=== PATIENT | male | born 1980 | race African-American/Black ===

== ENCOUNTER 2019-07-27 09:04 | Emergency (ER) | payer SELFPAY ==
[~2019-07-27] VITALS: Ht 172 cm; Wt 90.9 kg
--- NOTE | 2019-07-27 09:06 | ED General ---
General Stated Complaint: HYPOTHERMIA Source of Information: Patient, EMS Exam Limitations: Other (clinical condition) History of Present Illness Date Seen by Provider: Jul 27, 2019 Time Seen by Provider: 09:06 Initial Comments 39-year-old male brought in by EMS. [place]. We are unsure how long he has been laying out there. Patient reports that he was walking to the gas station when he "passed out" patient admits to drinking. Patient admits he is diabetic but does not take any insulin or any medication for because he "does not like needles" patient denies any drug use. Patient was confused and mildly obtunded when EMS found him. He has become much more awake and talkative upon arrival to the ER. Allergies and Home Medications Allergies Coded Allergies: Penicillins (Verified Allergy, Unknown, 07/27/19) Patient Home Medication List Home Medication List Reviewed: Yes Review of Systems Review of Systems Constitutional: chills Respiratory: no symptoms reported Cardiovascular: no symptoms reported Gastrointestinal: no symptoms reported Genitourinary: no symptoms reported Musculoskeletal: no symptoms reported Skin: no symptoms reported Psychiatric/Neurological: See HPI Past Gauumpb-Ymqiyg-Bhsngq Hx Past Med/Social Hx: Reviewed Nursing Past Med/Soc Hx Physical Exam Vital Signs Vital Signs - First Documented 07/27/19 09:04 Temp 31.2 Pulse 102 Resp 15 B/P (MAP) 145/102 (116) Pulse Ox 99 O2 Delivery Room Air Capillary Refill : Height, Weight, BMI Height: '" Weight: lbs. oz. 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 Norm as Tested Skin: Cool, Damp Progress/Results/Core Measures Suspected Sepsis SIRS Temperature: Pulse: Respiratory Rate: Laboratory Tests 07/27/19 09:12: White Blood Count 9.8 Blood Pressure / Mean: Laboratory Tests 07/27/19 09:12: Creatinine 0.87, Platelet Count 408H, Total Bilirubin 0.3 Results/Orders Lab Results Laboratory Tests Test 07/27/19 09:12 07/27/19 09:38 07/27/19 09:50 Range/Units White Blood Count 9.8 4.3-11.0 10^3/uL Red Blood Count 6.24 H 4.35-5.85 10^6/uL Hemoglobin 17.3 13.3-17.7 G/DL Hematocrit 50 40-54 % Mean Corpuscular Volume 81 80-99 FL Mean Corpuscular Hemoglobin 28 25-34 PG Mean Corpuscular Hemoglobin Concent 34 32-36 G/DL Red Cell Distribution Width 14.7 H 10.0-14.5 % Platelet Count 408 H 130-400 10^3/uL Mean Platelet Volume 9.2 7.4-10.4 FL Neutrophils (%) (Auto) 65 42-75 % Lymphocytes (%) (Auto) 29 12-44 % Monocytes (%) (Auto) 4 0-12 % Eosinophils (%) (Auto) 1 0-10 % Basophils (%) (Auto) 0 0-10 % Neutrophils # (Auto) 6.4 1.8-7.8 X 10^3 Lymphocytes # (Auto) 2.9 1.0-4.0 X 10^3 Monocytes # (Auto) 0.4 0.0-1.0 X 10^3 Eosinophils # (Auto) 0.1 0.0-0.3 10^3/uL Basophils # (Auto) 0.0 0.0-0.1 10^3/uL Sodium Level 143 135-145 MMOL/L Potassium Level 3.8 3.6-5.0 MMOL/L Chloride Level 103 98-107 MMOL/L Carbon Dioxide Level 21 21-32 MMOL/L Anion Gap 19 H 5-14 MMOL/L Blood Urea Nitrogen 11 7-18 MG/DL Creatinine 0.87 0.60-1.30 MG/DL Estimat Glomerular Filtration Rate > 60 BUN/Creatinine Ratio 13 Glucose Level 73 70-105 MG/DL Calcium Level 10.0 8.5-10.1 MG/DL Corrected Calcium 8.5-10.1 MG/DL Total Bilirubin 0.3 0.1-1.0 MG/DL Aspartate Amino Transf (AST/SGOT) 24 5-34 U/L Alanine Aminotransferase (ALT/SGPT) 14 0-55 U/L Alkaline Phosphatase 90 40-136 U/L Creatine Kinase MB 3.3 <6.6 NG/ML Total Protein 9.3 H 6.4-8.2 GM/DL Albumin 4.7 H 3.2-4.5 GM/DL Serum Alcohol 159 H <10 MG/DL Blood Gas Puncture Site RR Blood Gas Patient Temperature 31.5 Arterial Blood pH 7.30 *L 7.37-7.43 Arterial Blood Partial Pressure CO2 36 35-45 MMHG Arterial Blood Partial Pressure O2 67 L 79-93 MMHG Arterial Blood HCO3 18 L 23-27 MMOL/L Arterial Blood Total CO2 19.8 L 21.0-31.0 MMOL/L Arterial Blood Oxygen Saturation 95 94-100 % Arterial Blood Base Excess -7.9 L -2.5-2.5 MMOL/L Venkat Test YES-POS Blood Gas Ventilator Setting NO Blood Gas Inspired Oxygen RA Glucometer 69 L 70-110 MG/DL My Orders Orders - JUNIE BRYANT Rc DO Accucheck Stat ONCE (07/27/19 09:06) Ekg Tracing (07/27/19 09:06) Alcohol (07/27/19 09:06) Cbc With Automated Diff (07/27/19 09:06) Comprehensive Metabolic Panel (07/27/19 09:06) Creatine Kinase Mb (07/27/19 09:06) Drug Screen Stat (Urine) (07/27/19 09:06) Ua Culture If Indicated (07/27/19 09:06) Arterial Blood Gas (07/27/19 09:06) Ed Iv/Invasive Line Start (07/27/19 09:12) Ns Iv 1000 Ml (Sodium Chloride 0.9%) (07/27/19 09:12) Acetaminophen Tablet (Tylenol Tablet) (07/27/19 11:54) Vital Signs/I&O 07/27/19 09:04 Temp 31.2 Pulse 102 Resp 15 B/P (MAP) 145/102 (116) Pulse Ox 99 O2 Delivery Room Air Capillary Refill : Progress Note : Time: 11:49 Progress Note Patient continued to improve throughout his stay. He was legally intoxicated with a blood alcohol level. No other findings on exam or labs. Departure Impression Primary Impression: Acute alcohol intoxication Qualified Codes: F10.929 - Alcohol use, unspecified with intoxication, unspecified Additional Impression: Hypothermia due to exposure Disposition: HOME, SELF-CARE Condition: Stable JUNIE BRYANT Jul 27, 2019 09:06
[2019-07-27] MEDS ORDERED: NS IV 1000 ML 1,000 ML IV SCH (09:12)
[2019-07-27 09:21] LABS: BASOPHILS % (AUTO) 0 % (0-10); EOSINOPHILS # (AUTO) 0.1 10^3/uL (0.0-0.3); EOSINOPHILS % (AUTO) 1 % (0-10); HEMATOCRIT 50 % (40-54); HEMOGLOBIN 17.3 G/DL (13.3-17.7); LYMPHOCYTES # (AUTO) 2.9 X 10^3 (1.0-4.0); LYMPHOCYTES % (AUTO) 29 % (12-44); MEAN CORPUSCULAR HEMOGLOBIN 28 PG (25-34); MEAN CORPUSCULAR HGB CONC 34 G/DL (32-36); MEAN CORPUSCULAR VOLUME 81 FL (80-99); MEAN PLATELET VOLUME 9.2 FL (7.4-10.4); MONOCYTES # (AUTO) 0.4 X 10^3 (0.0-1.0); MONOCYTES % (AUTO) 4 % (0-12); NEUTROPHILS # (AUTO) 6.4 X 10^3 (1.8-7.8); NEUTROPHILS % (AUTO) 65 % (42-75); PLATELET COUNT 408 10^3/uL (130-400); RED CELL DISTRIBUTION WIDTH 14.7 % (10.0-14.5); WHITE BLOOD COUNT 9.8 10^3/uL (4.3-11.0)
[2019-07-27 09:45] LABS: ALANINE AMINOTRANSFERASE 14 U/L (0-55); ALBUMIN 4.7 GM/DL (3.2-4.5); ALKALINE PHOSPHATASE 90 U/L (40-136); BILIRUBIN,TOTAL 0.3 MG/DL (0.1-1.0); BUN/CREATININE RATIO 13; CARBON DIOXIDE 21 MMOL/L (21-32); CHLORIDE 103 MMOL/L (98-107); CREATININE SERUM 0.87 MG/DL (0.60-1.30); GFR ESTIMATED > 60; GLUCOSE 73 MG/DL (70-105); POTASSIUM 3.8 MMOL/L (3.6-5.0); SODIUM 143 MMOL/L (135-145); TOTAL PROTEIN 9.3 GM/DL (6.4-8.2)
[2019-07-27 09:49] LABS: ABG BASE EXCESS -7.9 MMOL/L (-2.5-2.5); ABG OXYGEN SATURATION 95 % (94-100); ABG PCO2 36 MMHG (35-45); ABG PO2 67 MMHG (79-93); ABG TCO2 19.8 MMOL/L (21.0-31.0)
[2019-07-27 09:50] LABS: ALLENS TEST YES-POS; INSPIRED O2 RA; VENTILATOR NO
[2019-07-27 09:51] LABS: PATIENT TEMP 31.5
[2019-07-27 09:53] LABS: CREATINE KINASE MB 3.3 NG/ML (<6.6)
[2019-07-27] MEDS ORDERED: ACETAMINOPHEN 500 MG TAB (TYLENOL) PO STA (11:54)
[2019-07-27 12:27] VITALS: BP 120/74
== END 2019-07-27 12:27 | disposition home or self-care (01) ==
LOC: ER 09:08
DX: F10.129 Alcohol abuse with intoxication, unspecified (principal); R68.0 Hypothermia, not associated with low environmental temperature; E11.9 Type 2 diabetes mellitus without complications; Z88.0 Allergy status to penicillin; Y90.6 Blood alcohol level of 120-199 mg/100 ml
CPT/HCPCS: 36415; 80053; 80320; 82553; 82805; 82962; 85025; 93005; 96360

== ENCOUNTER 2020-04-17 11:14 | Emergency (ER) | payer SELFPAY ==
[~2020-04-17] VITALS: Ht 167.7 cm; Wt 90.9 kg
[2020-04-17 12:55] LABS: BASOPHILS % (AUTO) 1 % (0-10); EOSINOPHILS # (AUTO) 0.1 10^3/uL (0.0-0.3); EOSINOPHILS % (AUTO) 2 % (0-10); HEMATOCRIT 40 % (40-54); HEMOGLOBIN 13.5 g/dL (13.3-17.7); LYMPHOCYTES # (AUTO) 1.3 10^3/uL (1.0-4.0); LYMPHOCYTES % (AUTO) 20 % (12-44); MEAN CORPUSCULAR HEMOGLOBIN 29 pg (25-34); MEAN CORPUSCULAR HGB CONC 33 g/dL (32-36); MEAN CORPUSCULAR VOLUME 85 fL (80-99); MEAN PLATELET VOLUME 10.3 fL (9.0-12.2); MONOCYTES # (AUTO) 0.6 10^3/uL (0.0-1.0); MONOCYTES % (AUTO) 9 % (0-12); NEUTROPHILS # (AUTO) 4.3 10^3/uL (1.8-7.8); NEUTROPHILS % (AUTO) 69 % (42-75); PLATELET COUNT 255 10^3/uL (130-400); WHITE BLOOD COUNT 6.2 10^3/uL (4.3-11.0)
--- NOTE | 2020-04-17 12:58 | Diagnostic Imaging Report ---
INDICATION: Right wrist swelling. Time of exam 12:36 p.m. The distal radius and ulna appear to be intact. Navicular is intact. Carpus is unremarkable. Metacarpals are unremarkable. No fractures are seen. IMPRESSION: No acute bony abnormality is detected. Dictated by: Dictated on workstation # [id number]
[2020-04-17 13:05] LABS: CHLORIDE 101 MMOL/L (98-107)
[2020-04-17 13:06] LABS: POTASSIUM 3.6 MMOL/L (3.6-5.0); SODIUM 138 MMOL/L (135-145)
[2020-04-17 13:07] LABS: CALCIUM 8.8 MG/DL (8.5-10.1)
[2020-04-17 13:09] LABS: CARBON DIOXIDE 26 MMOL/L (21-32)
[2020-04-17 13:11] LABS: GFR ESTIMATED > 60
[2020-04-17 13:12] LABS: BUN/CREATININE RATIO 5; ERYTHROCYTE SEDIMENTATION RATE 5 MM/HR (0-15)
[2020-04-17 13:22] LABS: GLUCOSE 404 MG/DL (70-105)
[2020-04-17] MEDS ORDERED: NS IV 1000 ML 1,000 ML IV SCH (13:30)
--- NOTE | 2020-04-17 13:34 | ED Upper Extremity ---
General Chief Complaint: Upper Extremity Stated Complaint: WRIST PAIN Nursing Triage Note: AMB TO ROOM WITH PAIN AND SWELLING IN R HAND. ONSET YESTERDAY REPORTS NO INJURY WOKE UP WITH HAND SWOLLEN HAS BEEN TAKING OTC PAIN MEDS. HAS SURG 8 YEARS AGO FORM THAT ARM FROM SURG. Nursing Sepsis Screen: No Definite Risk Source: patient, family Exam Limitations: no limitations History of Present Illness Date Seen by Provider: Apr 17, 2020 Time Seen by Provider: 13:33 Initial Comments To ER with right wrist swelling and pain that began yesterday. No known injury. No fevers no chills. History of similar occurring in both ankles in the past. He is a diabetic noncompliant with medication treatment. Onset: just prior to arrival Severity: moderate Pain/Injury Location: right wrist Method of Injury: unknown Modifying Factors: Worse With Movement Allergies and Home Medications Allergies Coded Allergies: Penicillins (Verified Allergy, Unknown, 07/27/19) Patient Home Medication List Home Medication List Reviewed: Yes Review of Systems Constitutional: see HPI; No chills, No fever EENTM: see HPI Respiratory: no symptoms reported Cardiovascular: no symptoms reported Genitourinary: no symptoms reported Musculoskeletal: see HPI Skin: no symptoms reported Psychiatric/Neurological: No Symptoms Reported Past Lkfvmbj-Khuhat-Aknovx Hx Patient Social History Alcohol Use: Occasionally Uses Recreational Drug Use: No Smoking Status: Current Someday Smoker Type Used: Cigarettes Recent Foreign Travel: No Contact w/Someone Who Travel: No Recent Infectious Disease Expo: No Recent Hopitalizations: No Immunizations Up To Date Tetanus Booster (TDap): Unknown Seasonal Allergies Seasonal Allergies: No Past Medical History Surgeries: Yes Abdominal, Orthopedic Respiratory: Yes Asthma Cardiac: Yes Hypertension Neurological: No Genitourinary: No Gastrointestinal: No Musculoskeletal: No Endocrine: Yes Diabetes, Non-Insulin dep HEENT: No Cancer: No Psychosocial: No Integumentary: No Blood Disorders: No Physical Exam Vital Signs Vital Signs - First Documented 04/17/20 11:23 Temp 36.7 Pulse 88 Resp 18 B/P (MAP) 152/112 (125) Pulse Ox 100 O2 Delivery Room Air Capillary Refill : Less Than 3 Seconds Height, Weight, BMI Height: '" Weight: lbs. oz. kg; 32.00 BMI Method: General Appearance: WD/WN, no apparent distress Respiratory: no respiratory distress, no accessory muscle use Shoulder: normal inspection, non-tender Elbow/Forearm: normal inspection, non-tender Wrist: Yes swelling (doesn't identify the attempted arthrocentesis of the right wrist radial dorsal aspect unable to aspirate any material.) Hand: normal inspection, non-tender Neurologic/Tendon: normal sensation, normal motor functions Neurologic/Psychiatric: alert, normal mood/affect, oriented x 3 Skin: normal color, warm/dry Progress/Results/Core Measures Results/Orders Lab Results Laboratory Tests Test 04/17/20 12:50 Range/Units White Blood Count 6.2 4.3-11.0 10^3/uL Red Blood Count 4.74 4.30-5.52 10^6/uL Hemoglobin 13.5 13.3-17.7 g/dL Hematocrit 40 40-54 % Mean Corpuscular Volume 85 80-99 fL Mean Corpuscular Hemoglobin 29 25-34 pg Mean Corpuscular Hemoglobin Concent 33 32-36 g/dL Red Cell Distribution Width 13.3 10.0-14.5 % Platelet Count 255 130-400 10^3/uL Mean Platelet Volume 10.3 9.0-12.2 fL Immature Granulocyte % (Auto) 0 % Neutrophils (%) (Auto) 69 42-75 % Lymphocytes (%) (Auto) 20 12-44 % Monocytes (%) (Auto) 9 0-12 % Eosinophils (%) (Auto) 2 0-10 % Basophils (%) (Auto) 1 0-10 % Neutrophils # (Auto) 4.3 1.8-7.8 10^3/uL Lymphocytes # (Auto) 1.3 1.0-4.0 10^3/uL Monocytes # (Auto) 0.6 0.0-1.0 10^3/uL Eosinophils # (Auto) 0.1 0.0-0.3 10^3/uL Basophils # (Auto) 0.0 0.0-0.1 10^3/uL Immature Granulocyte # (Auto) 0.0 0.0-0.1 10^3/uL Erythrocyte Sedimentation Rate 5 0-15 MM/HR Sodium Level 138 135-145 MMOL/L Potassium Level 3.6 3.6-5.0 MMOL/L Chloride Level 101 98-107 MMOL/L Carbon Dioxide Level 26 21-32 MMOL/L Anion Gap 11 5-14 MMOL/L Blood Urea Nitrogen 6 L 7-18 MG/DL Creatinine 1.20 0.60-1.30 MG/DL Estimat Glomerular Filtration Rate > 60 BUN/Creatinine Ratio 5 Glucose Level 404 *H 70-105 MG/DL Calcium Level 8.8 8.5-10.1 MG/DL C-Reactive Protein High Sensitivity 2.90 H 0.00-0.50 MG/DL My Orders Orders - CAROLYN ESPINAL APRN Cbc With Automated Diff (04/17/20 11:39) Basic Metabolic Panel (04/17/20 11:39) Hs C Reactive Protein (04/17/20 11:39) Erythrocyte Sedimentation Rate (04/17/20 11:39) Wrist, Right, 3 Views Or More (04/17/20 11:39) Ns Iv 1000 Ml (Sodium Chloride 0.9%) (04/17/20 13:30) Ed Iv/Invasive Line Start (04/17/20 13:24) Ketorolac Injection (Toradol Injection) (04/17/20 13:45) Medications Given in ED Current Medications Medications Dose Ordered Sig/Ang Route Start Time Stop Time Status Last Admin Dose Admin Ketorolac Tromethamine 15 mg ONCE ONCE IVP 04/17/20 13:45 04/17/20 13:46 DC 04/17/20 13:39 15 MG Vital Signs/I&O 04/17/20 11:23 Temp 36.7 Pulse 88 Resp 18 B/P (MAP) 152/112 (125) Pulse Ox 100 O2 Delivery Room Air Blood Pressure Mean: 125 Departure Impression Primary Impression: Monoarthritis Additional Impression: Uncontrolled diabetes mellitus Disposition: 01 HOME, SELF-CARE Condition: Stable Departure-Patient Inst. Decision time for Depature: 13:41 Referrals: NO,LOCAL PHYSICIAN (PCP) Primary Care Physician Patient Instructions: Common Wrist Injuries (DC) Add. Discharge Instructions: 1. Follow-up with your primary care provider next week. Call today to make an appointment. Would be a good idea to restart your insulin or antidiabetic pills. Drink plenty of fluids. Return to ER for any fevers chills worsening swelling or other concerns. All discharge instructions reviewed with patient and/or family. Voiced understanding. Work/School Note: Work Release Form Date Seen in the Emergency Department: Apr 17, 2020 Return to Work: Apr 21, 2020 CAROLYN ESPINAL APRN Apr 17, 2020 13:34
[2020-04-17] MEDS ORDERED: KETOROLAC 30 MG/ML VIAL IVP ONE (13:45)
[2020-04-17 14:31] VITALS: BP 164/95
== END 2020-04-17 14:31 | disposition home or self-care (01) ==
LOC: EDUNIT# 11:14 → ER 11:16
DX: M13.131 Monoarthritis, not elsewhere classified, right wrist (principal); E11.9 Type 2 diabetes mellitus without complications; I10 Essential (primary) hypertension; F17.210 Nicotine dependence, cigarettes, uncomplicated; Z91.14 Patient's other noncompliance with medication regimen; Z88.0 Allergy status to penicillin
CPT/HCPCS: 36415; 73110; 80048; 82962; 85025; 85652; 86141

== ENCOUNTER 2020-04-25 07:49 | Emergency (ER) | payer BC ==
[~2020-04-25] VITALS: Ht 170 cm; Wt 91.6 kg
[2020-04-25 08:15] VITALS: BP 156/99
[2020-04-25] MEDS ORDERED: KETOROLAC 30 MG/ML VIAL IVP ONE ×2 (08:30→09:15)
[2020-04-25 09:03] LABS: BASOPHILS % (AUTO) 0 % (0-10); EOSINOPHILS # (AUTO) 0.1 10^3/uL (0.0-0.3); EOSINOPHILS % (AUTO) 2 % (0-10); HEMATOCRIT 43 % (40-54); HEMOGLOBIN 14.4 g/dL (13.3-17.7); LYMPHOCYTES # (AUTO) 1.1 10^3/uL (1.0-4.0); LYMPHOCYTES % (AUTO) 16 % (12-44); MEAN CORPUSCULAR HEMOGLOBIN 28 pg (25-34); MEAN CORPUSCULAR HGB CONC 34 g/dL (32-36); MEAN CORPUSCULAR VOLUME 83 fL (80-99); MEAN PLATELET VOLUME 10.1 fL (9.0-12.2); MONOCYTES # (AUTO) 0.3 10^3/uL (0.0-1.0); MONOCYTES % (AUTO) 4 % (0-12); NEUTROPHILS # (AUTO) 5.5 10^3/uL (1.8-7.8); NEUTROPHILS % (AUTO) 78 % (42-75); PLATELET COUNT 284 10^3/uL (130-400); WHITE BLOOD COUNT 7.1 10^3/uL (4.3-11.0)
[2020-04-25 09:17] LABS: CHLORIDE 103 MMOL/L (98-107); SODIUM 141 MMOL/L (135-145)
[2020-04-25 09:18] LABS: CALCIUM 8.9 MG/DL (8.5-10.1); GLUCOSE 331 MG/DL (70-105)
[2020-04-25 09:20] LABS: CARBON DIOXIDE 27 MMOL/L (21-32)
[2020-04-25 09:22] LABS: CREATININE SERUM 1.09 MG/DL (0.60-1.30); GFR ESTIMATED > 60
[2020-04-25 09:23] LABS: BUN/CREATININE RATIO 11
[2020-04-25 09:25] LABS: URIC ACID 6.7 MG/DL (2.6-7.2)
[2020-04-25] MEDS ORDERED: COLCHICINE 0.6 MG (COLCRYS) TABLET PO ONE (09:45)
--- NOTE | 2020-04-25 09:58 | ED General ---
General Chief Complaint: Upper Extremity Stated Complaint: R HAND PAIN Nursing Triage Note: PT AMB TO FT1. REPORTS RIGHT WRIST PAIN X'S 1 WEEK. Nursing Sepsis Screen: No Definite Risk Source of Information: Patient, Old Records Exam Limitations: No Limitations History of Present Illness Date Seen by Provider: Apr 25, 2020 Time Seen by Provider: 07:55 Initial Comments This 39-year-old gentleman presents to the emergency room with complaints of right wrist pain. It is somewhat migratory within the wrist. This is been going on for a few weeks. He was seen about 10 days ago in the emergency room and x-rays were obtained. No injury was identified. Patient denies any trauma. He has no history of gout. He does have diabetes. Labs were also obtained during his first visit but no uric acid was performed. Patient wonders about gout as do I. Allergies and Home Medications Allergies Coded Allergies: Penicillins (Verified Allergy, Unknown, 07/27/19) Home Medications Allopurinol 100 Mg Tablet, 100 MG PO DAILY Start this medication once the acute inflammation has resolved. Prescribed by: GAMA BARROSO on 04/25/2059 Indomethacin 50 Mg Capsule, 50 MG PO TID Prescribed by: GAMA BARROSO on 04/25/20 0959 Patient Home Medication List Home Medication List Reviewed: Yes Review of Systems Review of Systems Constitutional: no symptoms reported EENTM: no symptoms reported Respiratory: no symptoms reported Cardiovascular: no symptoms reported Gastrointestinal: no symptoms reported Genitourinary: no symptoms reported Musculoskeletal: see HPI Skin: no symptoms reported Psychiatric/Neurological: No Symptoms Reported Hematologic/Lymphatic: No Symptoms Reported Past Cxcvrdw-Ehgcxg-Zfljhu Hx Past Med/Social Hx: Reviewed Nursing Past Med/Soc Hx Patient Social History Alcohol Use: Occasionally Uses Recreational Drug Use: No Smoking Status: Current Someday Smoker Type Used: Cigarettes Recent Foreign Travel: No Contact w/Someone Who Travel: No Recent Infectious Disease Expo: No Recent Hopitalizations: No Immunizations Up To Date Tetanus Booster (TDap): Unknown Seasonal Allergies Seasonal Allergies: No Past Medical History Surgeries: Yes Abdominal, Orthopedic Respiratory: Yes Asthma Cardiac: Yes Hypertension Neurological: No Genitourinary: No Gastrointestinal: No Musculoskeletal: No Endocrine: Yes Diabetes, Non-Insulin dep HEENT: No Cancer: No Psychosocial: No Integumentary: No Blood Disorders: No Physical Exam Vital Signs Vital Signs - First Documented 04/25/20 08:15 Temp 36.6 Pulse 88 Resp 18 B/P (MAP) 156/99 (118) Pulse Ox 98 O2 Delivery Room Air Capillary Refill : Less Than 3 Seconds Height, Weight, BMI Height: '" Weight: lbs. oz. kg; 31.00 BMI Method: General Appearance: No Apparent Distress, WD/WN HEENT: PERRL/EOMI, Normal ENT Inspection Neck: Normal Inspection Respiratory: Lungs Clear, Normal Breath Sounds, No Accessory Muscle Use Cardiovascular: Regular Rate, Rhythm, No Edema, No Murmur Extremity: Other (right wrist is tender and markedly painful with range of motion. There is mild erythema as well. Refrigerator Crater strength is decreased due to pain. 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 Norm as Tested Skin: Warm/Dry, Erythema (mild erythema about the right wrist) Progress/Results/Core Measures Suspected Sepsis Recent Fever Within 48 Hours: No Infection Criteria Present: None New/Unexplained Altered Menta: No Sepsis Screen: No Definite Risk SIRS Temperature: Pulse: 88 Respiratory Rate: 18 Laboratory Tests 04/25/20 08:55: White Blood Count 7.1 Blood Pressure 156 /99 Mean: 118 Laboratory Tests 04/25/20 08:55: Creatinine 1.09, Platelet Count 284 Results/Orders Lab Results Laboratory Tests Test 04/25/20 08:55 Range/Units White Blood Count 7.1 4.3-11.0 10^3/uL Red Blood Count 5.13 4.30-5.52 10^6/uL Hemoglobin 14.4 13.3-17.7 g/dL Hematocrit 43 40-54 % Mean Corpuscular Volume 83 80-99 fL Mean Corpuscular Hemoglobin 28 25-34 pg Mean Corpuscular Hemoglobin Concent 34 32-36 g/dL Red Cell Distribution Width 13.1 10.0-14.5 % Platelet Count 284 130-400 10^3/uL Mean Platelet Volume 10.1 9.0-12.2 fL Immature Granulocyte % (Auto) 0 % Neutrophils (%) (Auto) 78 H 42-75 % Lymphocytes (%) (Auto) 16 12-44 % Monocytes (%) (Auto) 4 0-12 % Eosinophils (%) (Auto) 2 0-10 % Basophils (%) (Auto) 0 0-10 % Neutrophils # (Auto) 5.5 1.8-7.8 10^3/uL Lymphocytes # (Auto) 1.1 1.0-4.0 10^3/uL Monocytes # (Auto) 0.3 0.0-1.0 10^3/uL Eosinophils # (Auto) 0.1 0.0-0.3 10^3/uL Basophils # (Auto) 0.0 0.0-0.1 10^3/uL Immature Granulocyte # (Auto) 0.0 0.0-0.1 10^3/uL Sodium Level 141 135-145 MMOL/L Potassium Level 4.0 3.6-5.0 MMOL/L Chloride Level 103 98-107 MMOL/L Carbon Dioxide Level 27 21-32 MMOL/L Anion Gap 11 5-14 MMOL/L Blood Urea Nitrogen 12 7-18 MG/DL Creatinine 1.09 0.60-1.30 MG/DL Estimat Glomerular Filtration Rate > 60 BUN/Creatinine Ratio 11 Glucose Level 331 H 70-105 MG/DL Uric Acid 6.7 2.6-7.2 MG/DL Calcium Level 8.9 8.5-10.1 MG/DL C-Reactive Protein High Sensitivity 1.08 H 0.00-0.50 MG/DL My Orders Orders - GAMA PAUL MD Basic Metabolic Panel (04/25/20 07:55) Cbc With Automated Diff (04/25/20 07:55) Hs C Reactive Protein (04/25/20 07:55) Uric Acid (04/25/20 07:55) Ketorolac Injection (Toradol Injection) (04/25/20 08:30) Ed Iv/Invasive Line Start (04/25/20 08:24) Ketorolac Injection (Toradol Injection) (04/25/20 09:15) Colchicine Tablet (Colcrys Tablet) (04/25/20 09:45) Medications Given in ED Current Medications Medications Dose Ordered Sig/Ang Route Start Time Stop Time Status Last Admin Dose Admin Colchicine 1.2 mg ONCE ONCE PO 04/25/20 09:45 04/25/20 09:46 DC 04/25/20 10:00 1.2 MG Ketorolac Tromethamine 30 mg ONCE ONCE IVP 04/25/20 09:15 04/25/20 09:16 DC 04/25/20 09:09 30 MG Vital Signs/I&O 04/25/20 08:15 Temp 36.6 Pulse 88 Resp 18 B/P (MAP) 156/99 (118) Pulse Ox 98 O2 Delivery Room Air Capillary Refill : Less Than 3 Seconds Blood Pressure Mean: 118 Progress Note : Progress Note labs were reviewed. There seemed to be no suggestion of infection or gout based on blood work. However, his symptoms seem to suggest gout. Toradol was given for treatment of pain. Colchicine was also administered. I discussed the situation with the patient and recommended that he observe gout lifestyle modifications. I suggested close follow-up with his primary care provider. Indomethacin was prescribed to be followed by allopurinol after acute inflammation decreased. Patient was encouraged to wear a brace when active until pain improved. Departure Impression Primary Impression: Monoarthritis Disposition: HOME, SELF-CARE Condition: Improved Departure-Patient Inst. Decision time for Depature: 09:53 Referrals: NO,LOCAL PHYSICIAN (PCP/Family) Primary Care Physician Patient Instructions: Gout, Lifestyle Changes to Manage Gout Add. Discharge Instructions: Drink plenty of clear liquids. Tightly control your diabetes to help prevent gout. Although your labs today did not confirm gout, I am still suspicious that is the cause. I suggest you follow-up with your primary care provider to get a referral to an orthopedist for further evaluation. Follow-up as soon as possible. Please call today for an appointment time and/or to obtain a referral over the phone. In the meantime you may take indomethacin as prescribed for the acute attack. Once the inflammation calms down, you may start allopurinol. Please also follow the lifestyle recommendations included in this packet. Return to care if you have worsening symptoms. All discharge instructions reviewed with patient and/or family. Voiced understanding. Scripts Allopurinol (Allopurinol) 100 Mg Tablet 100 MG PO DAILY, #30 TAB Start this medication once the acute inflammation has resolved. Prov: GAMA PAUL MD 04/25/20 Indomethacin (Indomethacin) 50 Mg Capsule 50 MG PO TID, #20 CAP Prov: GAMA PAUL MD 04/25/20 Work/School Note: Work Release Form Date Seen in the Emergency Department: Apr 25, 2020 Return to Work: Apr 28, 2020 Restrictions: No Restrictions Copy Copies To 1: CHRISTINE DUPREE JOSHUA T MD Apr 25, 2020 09:58
[2020-04-25] MEDS ORDERED: ALLO100T PO (09:59)
[2020-04-25] MEDS ORDERED: INDO50CA82 PO (09:59)
== END 2020-04-25 10:04 | disposition home or self-care (01) ==
LOC: EDUNIT# 07:49 → ER 07:51
DX: M13.131 Monoarthritis, not elsewhere classified, right wrist (principal); F17.210 Nicotine dependence, cigarettes, uncomplicated; Z88.0 Allergy status to penicillin
CPT/HCPCS: 36415; 80048; 84550; 85025; 86141

== ENCOUNTER 2022-02-21 21:21 | Emergency (ER) | payer BC ==
[~2022-02-21] VITALS: Ht 170 cm; Wt 77.2 kg
[~2022-02-21 21:21] MED LIST: ALLO100T PO; INDO50CA82 PO
[2022-02-21 21:54] VITALS: BP 144/83
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
--- NOTE | 2022-02-21 22:38 | Diagnostic Imaging Report ---
INDICATION: Left wrist pain. EXAMINATION: AP, oblique and lateral views of the left wrist were obtained. FINDINGS: There is ulnar minus variation. No acute fracture or dislocation is identified. No abnormal lytic or sclerotic focus is seen, and there is no radiopaque foreign body. IMPRESSION: No acute abnormality. Dictated by: Dictated on workstation # [id number]
== END 2022-02-21 22:40 | disposition home or self-care (01) ==
LOC: EDUNIT# 21:21 → ER 21:23
DX: M25.531 Pain in right wrist (principal); Z72.0 Tobacco use
CPT/HCPCS: 73110

== ENCOUNTER 2022-11-23 15:03 | Emergency (ER) | payer BC ==
[~2022-11-23] VITALS: Ht 170 cm; Wt 77.0 kg
--- NOTE | 2022-11-23 15:43 | ED Lower Extremity ---
General Chief Complaint: Lower Extremity Stated Complaint: RT FOOT INJ Nursing Triage Note: PT ARRIVES TO ER VIA W/C WITH FAMILY. 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 PT C/O PERSISTENT R KNEE AND R FOOT PAIN. PT REPORTS PULLED GLASS OUT OF FOOT AFTER ACCIDENT. NO OPEN WOUNDS NOTED CURRENTLY. REPORTS PAIN SIGNIFICANTLY WORSE AFTER WORKING 10 HOURS ON HIS FEET YESTERDAY. PT HAS BEEN TAKING ADVIL WITHOUT RELIEF. Source: patient Exam Limitations: no limitations History of Present Illness Date Seen by Provider: November 23, 2022 Time Seen by Provider: 15:13 Initial Comments Patient is a 42-year-old male who presents to the emergency room with a chief complaint of right leg swelling, pain, right foot pain. Patient states that he ran into his entertainment center on of last, 6 days ago. He states the following day the leg swelled up. He has been pulling a glass out of his anterior proximal lower leg since that time. His significant other at the bedside states that "clots" have been coming out of the wound. He believes that he is up-to-date on his tetanus. He states the pain is worse after working for 10 hours yesterday. He took 5 ibuprofen tablets around 8 AM this morning with no relief of pain. He has never had swelling quite like this in his leg before. No recent prolonged immobility or travel. No history of blood clot. He does have a history of hypertension and diabetes. He is not currently taking m edications for either. He states it is very painful to walk on the right leg. He has had intermittent swelling of the right great toe off and on every few months for quite a while. Onset: other Severity: moderate Pain/Injury Location: right leg, right knee, right foot, right ankle, right 1st toe Method of Injury: direct blow Allergies and Home Medications Allergies Coded Allergies: Penicillins (Verified Allergy, Unknown, 07/27/19) Patient Home Medication List Home Medication List Reviewed: Yes Cephalexin (Cephalexin) 500 Mg Tablet, 500 MG PO QID Prescribed by: DANTE LECHUGA on 11/23/221719 Hydrocodone/Acetaminophen (Hydrocodone-Acetamin 5-325 mg) 5 Mg-325 Mg Tablet, 1 TAB PO Q6H PRN for PAIN-MODERATE (5-7) Prescribed by: DANTE LECHUGA on 11/23/22 1721 Review of Systems Constitutional: see HPI EENTM: no symptoms reported Cardiovascular: no symptoms reported Gastrointestinal: no symptoms reported Musculoskeletal: joint pain (right great toe) Skin: other (wound anterior fernandez) Past Oagrrdz-Uzixap-Poyncz Hx Patient Social History Tobacco Use?: Yes Tobacco type used: Cigarettes Substance use?: No Alcohol Use?: Yes Pt feels they are or have been: No Immunizations Up To Date Tetanus Booster (TDap): Unknown First/Initial COVID19 Vaccinat: RECEIVED, UNK WHEN Second COVID19 Vaccination Franklin: RECEIVED, UNK WHEN Seasonal Allergies Seasonal Allergies: No Past Medical History Surgery/Hospitalization HX: DENIES Surgeries: Yes Abdominal, Orthopedic Respiratory: Yes Asthma Cardiac: Yes Hypertension Neurological: No Genitourinary: No Gastrointestinal: No Musculoskeletal: No Endocrine: Yes Diabetes, Non-Insulin dep HEENT: No Cancer: No Psychosocial: No Integumentary: No Blood Disorders: No Physical Exam Vital Signs Vital Signs - First Documented 11/23/22 15:10 Temp 37.0 Pulse 104 Resp 18 B/P (MAP) 143/81 (101) Pulse Ox 100 O2 Delivery Room Air Capillary Refill : Height, Weight, BMI Height: '" Weight: lbs. oz. kg; 26.00 BMI Method: General Appearance: WD/WN, no apparent distress HEENT: PERRL/EOMI Cardiovascular: regular rate, rhythm Respiratory: lungs clear, normal breath sounds, no respiratory distress, no accessory muscle use Hips: bilateral hip non-tender, bilateral hip normal range of motion Legs: right leg pain, right leg soft tissue tenderness, right leg swelling, right leg other (wound prox fernandez; no active bleeding; increased warmth and geronimo thema to leg. 2-3+ pitting edema RLW) Knees: right knee swelling Ankles: right ankle swelling Feet: right foot other (right great toe MTP joint erythematous and tender to touch, no wound) Neurologic/Tendon: normal sensation, normal motor functions Neurologic/Psychiatric: alert, normal mood/affect, oriented x 3 Skin: normal color, warm/dry, other (erythema right leg) Progress/Results/Core Measures Results/Orders Lab Results Laboratory Tests Test 11/23/22 16:12 11/23/22 16:16 Range/Units Glucometer 219 H 70-110 MG/DL White Blood Count 5.8 4.3-11.0 10^3/uL Red Blood Count 4.59 4.30-5.52 10^6/uL Hemoglobin 12.0 L 13.3-17.7 g/dL Hematocrit 37 L 40-54 % Mean Corpuscular Volume 80 80-99 fL Mean Corpuscular Hemoglobin 26 25-34 pg Mean Corpuscular Hemoglobin Concent 33 32-36 g/dL Red Cell Distribution Width 14.3 10.0-14.5 % Platelet Count 228 130-400 10^3/uL Mean Platelet Volume 9.5 9.0-12.2 fL Immature Granulocyte % (Auto) 0 % Neutrophils (%) (Auto) 71 42-75 % Lymphocytes (%) (Auto) 17 12-44 % Monocytes (%) (Auto) 9 0-12 % Eosinophils (%) (Auto) 2 0-10 % Basophils (%) (Auto) 0 0-10 % Neutrophils # (Auto) 4.1 1.8-7.8 X 10^3 Lymphocytes # (Auto) 1.0 1.0-4.0 X 10^3 Monocytes # (Auto) 0.5 0.0-1.0 X 10^3 Eosinophils # (Auto) 0.1 0.0-0.3 10^3/uL Basophils # (Auto) 0.0 0.0-0.1 10^3/uL Immature Granulocyte # (Auto) 0.0 0.0-0.1 10^3/uL Sodium Level 139 135-145 MMOL/L Potassium Level 3.5 L 3.6-5.0 MMOL/L Chloride Level 102 98-107 MMOL/L Carbon Dioxide Level 24 21-32 MMOL/L Anion Gap 13 5-14 MMOL/L Blood Urea Nitrogen 6 L 7-18 MG/DL Creatinine 0.97 0.60-1.30 MG/DL Estimat Glomerular Filtration Rate 101 BUN/Creatinine Ratio 6 Glucose Level 207 H 70-105 MG/DL Calcium Level 8.8 8.5-10.1 MG/DL My Orders Orders - DANTE LECHUGA MD Ed Iv/Invasive Line Start (11/23/22 15:23) Cbc With Automated Diff (11/23/22 15:23) Basic Metabolic Panel (11/23/22 15:23) Accucheck Stat ONCE (11/23/22 15:23) Tibia/Fibula, Right, 2 Views (11/23/22 15:23) Foot, Right, 2 View (11/23/22 15:23) Vital Signs/I&O 11/23/22 11/23/22 15:10 17:50 Temp 37.0 Pulse 104 92 Resp 18 18 B/P (MAP) 143/81 (101) 145/76 Pulse Ox 100 100 O2 Delivery Room Air Room Air Blood Pressure Mean: 101 Progress Progress Note : Progress Note Patient seen and evaluated by me. Evaluation today includes physical exam, CBC, basic metabolic panel. Pertinent physical exam findings include well-developed well-nourished black male in no acute distress. Heart is regular, slightly tachycardic, blood pressure slightly elevated at 140s over 80s. Lungs are clear. The patient is not tachypneic. No cough is present. He is alert and oriented in no acute distress. Abdomen is soft. Lower extremity exam pertinent for diffusely swollen right lower extremity. He has abrasions to the anterior proximal fernandez that appear to be healing. There is surrounding erythema which is difficult to evaluate secondary to the darkness of the skin. The wound is slightly tender. No purulent drainage. The anterior fernandez is warm. Calf is supple, nontender. Negative Homans' sign. He does have some swelling and erythema to the right MTP joint of the first digit of the foot. Painful to touch. Differential diagnosis based on history and physical exam, cellulitis, DVT. Labs reviewed by me, CBC is normal, hemoglobin is 12 hematocrit is 37. Basic metabolic panel shows a potassium of 3.5 with a glucose of 207 otherwise unremarkable. Patient has had increased swelling after working 10 hours at work the day prior to evaluation. Low clinical suspicion for DVT. The cellulitis is more likely causing his leg to swell. I have started him on antibiotics and will send him home with some pain medications. Encouraged elevating his leg to reduce swelling. I have given him return precautions in both verbal and written format. Diagnostic Imaging Diagonstic Imaging: Xray Plain Films/CT/US/NM/MRI: chest Comments [facility]. [place], [place] NAME: DANIELLA CALLAHAN [facility] REC#: [id number] PT STATUS: REG ER : 1980 PHYSICIAN: DANTE LECHUGA MD ADMIT DATE: 11/23/22/ER Signed Date of Exam:11/23/22 TIBIA/FIBULA, RIGHT, 2 VIEWS INDICATION: Right leg pain post injury. TECHNIQUE: AP and lateral views of the right tibia and fibula are obtained. FINDINGS: No fracture or acute bony abnormality is seen. IMPRESSION: Negative right tibia and fibula. Dictated by: Dictated on workstation # [id number] Dict: 11/23/221645 Trans: 11/23/221657 [facility] Interpreted by: ANDREA OLIVA MD Electronically signed by: ANDREA OLIVA MD 11/23/221657 Diagonstic Imaging: Xray Comments [facility] [place] [place] NAME: DANIELLA CALLAHAN [facility] REC#: [id number] PT STATUS: REG ER : 1980 PHYSICIAN: DANTE LECHUGA MD ADMIT DATE: 11/23/22/ER Signed Date of Exam:11/23/22 FOOT, RIGHT, 2 VIEW INDICATION: Injury to right foot. AP and lateral views of the right foot are obtained. FINDINGS: No fracture or acute bony abnormality is seen. Joint spaces appear unremarkable. IMPRESSION: No acute bony abnormality of right foot. Dictated by: Dictated on workstation # [id number] Dict: 11/23/221644 Trans: 11/23/221657 [id number] Interpreted by: ANDREA OLIVA MD Electronically signed by: ANDREA OLIVA MD 11/23/221657 Departure Impression Primary Impression: Cellulitis of right leg Additional Impression: Hyperglycemia due to diabetes mellitus Disposition: 01 HOME, SELF-CARE Condition: Stable Departure-Patient Inst. Decision time for Depature: 17:18 Referrals: [facility] [place] [facility],LOCAL PHYSICIAN (PCP) Primary Care Physician Patient Instructions: Cellulitis (Skin Infection), Adult ED, Diabetes and Diet Add. Discharge Instructions: Start the antibiotics today if possible. You will take Keflex 500 mg 4 times a day for 10 days. Elevate the right leg to help decrease swelling. Wash the wound on your leg with a mild soap and water twice daily. Cover with a dry dressing as long as it is draining. I have written you some pain medication you can take 1 every 6 hours as needed for severe pain you can also take extra strength Tylenol with this medication. Only take up to 4 ibuprofen/Advil at a time every 8 hours with food for pain. If you develop any fever, shortness of breath or any respiratory difficulty at all please return to the emergency room for reevaluation. Please follow-up with a primary care provider. Scripts Cephalexin (Cephalexin) 500 Mg Tablet 500 MG PO QID for 10 Days, #40 TAB Prov: DANTE LECHUGA MD 11/23/22 Hydrocodone/Acetaminophen (Hydrocodone-Acetamin 5-325 mg) 5 Mg-325 Mg Tablet 1 TAB PO Q6H PRN for PAIN-MODERATE (5-7), #10 TAB Prov: DANTE LECHUGA MD 11/23/22 Work/School Note: Work Release Form Date Seen in the Emergency Department: November 23, 2022 Return to Work: November 26, 2022 DANTE LECHUGA MD November 23, 2022 15:43
[2022-11-23 16:29] LABS: BASOPHILS % (AUTO) 0 % (0-10); EOSINOPHILS # (AUTO) 0.1 10^3/uL (0.0-0.3); EOSINOPHILS % (AUTO) 2 % (0-10); HEMATOCRIT 37 % (40-54); LYMPHOCYTES % (AUTO) 17 % (12-44); MEAN CORPUSCULAR HEMOGLOBIN 26 pg (25-34); MEAN CORPUSCULAR HGB CONC 33 g/dL (32-36); MEAN CORPUSCULAR VOLUME 80 fL (80-99); MEAN PLATELET VOLUME 9.5 fL (9.0-12.2); MONOCYTES # (AUTO) 0.5 X 10^3 (0.0-1.0); MONOCYTES % (AUTO) 9 % (0-12); NEUTROPHILS # (AUTO) 4.1 X 10^3 (1.8-7.8); NEUTROPHILS % (AUTO) 71 % (42-75); PLATELET COUNT 228 10^3/uL (130-400); WHITE BLOOD COUNT 5.8 10^3/uL (4.3-11.0)
[2022-11-23 16:36] LABS: POTASSIUM 3.5 MMOL/L (3.6-5.0)
[2022-11-23 16:37] LABS: CALCIUM 8.8 MG/DL (8.5-10.1)
[2022-11-23 16:41] LABS: CREATININE SERUM 0.97 MG/DL (0.60-1.30)
--- NOTE | 2022-11-23 16:51 | Diagnostic Imaging Report ---
INDICATION: Injury to right foot. AP and lateral views of the right foot are obtained. FINDINGS: No fracture or acute bony abnormality is seen. Joint spaces appear unremarkable. IMPRESSION: No acute bony abnormality of right foot. Dictated by: Dictated on workstation # [id number]
--- NOTE | 2022-11-23 16:55 | Diagnostic Imaging Report ---
INDICATION: Right leg pain post injury. TECHNIQUE: AP and lateral views of the right tibia and fibula are obtained. FINDINGS: No fracture or acute bony abnormality is seen. IMPRESSION: Negative right tibia and fibula. Dictated by: Dictated on workstation # [id number]
[2022-11-23] MEDS ORDERED: ACHD5005 PO (17:20)
[2022-11-23] MEDS ORDERED: CEPH500T PO (17:20)
[2022-11-23 17:50] VITALS: BP 145/76
== END 2022-11-23 17:30 | disposition home or self-care (01) ==
LOC: EDUNIT# 15:03 → ER 15:05
DX: L03.031 Cellulitis of right toe (principal); E11.65 Type 2 diabetes mellitus with hyperglycemia; F17.210 Nicotine dependence, cigarettes, uncomplicated; Z88.0 Allergy status to penicillin
CPT/HCPCS: 36415; 73590; 73620; 80048; 82947; 85025

== ENCOUNTER 2022-11-29 05:06 | Emergency (ER) | payer BC ==
[~2022-11-29] VITALS: Ht 170 cm; Wt 77.0 kg
[~2022-11-29 05:06] MED LIST changes: +ACHD5005 PO; +CEPH500T PO
[2022-11-29 05:17] VITALS: BP 166/81
[2022-11-29] MEDS ORDERED: SULF1TAB38 PO (05:35)
[2022-11-29] MEDS ORDERED: MUPI22OI2 TP (05:35)
--- NOTE | 2022-11-29 05:36 | ED General ---
General Chief Complaint: General Problems/Pain Stated Complaint: RT LEG PAIN Nursing Triage Note: wants released to go back to work without restrictions. Source of Information: Patient Allergies and Home Medications Allergies Coded Allergies: Penicillins (Verified Allergy, Unknown, 07/27/19) Patient Home Medication List Cephalexin (Cephalexin) 500 Mg Tablet, 500 MG PO QID Prescribed by: DANTE LECHUGA on 11/23/22 1720 Hydrocodone/Acetaminophen (Hydrocodone-Acetamin 5-325 mg) 5 Mg-325 Mg Tablet, 1 TAB PO Q6H PRN for PAIN-MODERATE (5-7) Prescribed by: DANTE LECHUGA on 11/23/22 1721 Past Jauehvq-Xhaxds-Qjhiiu Hx Patient Social History Tobacco Use?: Yes Substance use?: No Alcohol Use?: Yes Alcohol Frequency: Once in a while Pt feels they are or have been: No Immunizations Up To Date Tetanus Booster (TDap): Unknown First/Initial COVID19 Vaccinat: unk Second COVID19 Vaccination Franklin: RECEIVED, UNK WHEN Seasonal Allergies Seasonal Allergies: No Past Medical History Surgery/Hospitalization HX: DENIES Surgeries: Yes Abdominal, Orthopedic Respiratory: Yes Asthma Cardiac: Yes Hypertension Neurological: No Genitourinary: No Gastrointestinal: No Musculoskeletal: No Endocrine: Yes Diabetes, Non-Insulin dep HEENT: No Cancer: No Psychosocial: No Integumentary: No Blood Disorders: No Physical Exam Vital Signs Vital Signs - First Documented 11/29/22 05:17 Temp 36.5 Pulse 99 Resp 16 B/P (MAP) 166/81 (109) Pulse Ox 96 O2 Delivery Room Air Capillary Refill : Less Than 3 Seconds Height, Weight, BMI Height: '" Weight: lbs. oz. kg; 26.00 BMI Method: Progress/Results/Core Measures Suspected Sepsis SIRS Temperature: Pulse: 99 Respiratory Rate: 16 Blood Pressure 166 /81 Mean: 109 Results/Orders Vital Signs/I&O 11/29/22 05:17 Temp 36.5 Pulse 99 Resp 16 B/P (MAP) 166/81 (109) Pulse Ox 96 O2 Delivery Room Air Capillary Refill : Less Than 3 Seconds Blood Pressure Mean: 109 Departure Impression Primary Impression: Cellulitis of right leg Disposition: 01 HOME, SELF-CARE Condition: Stable Departure-Patient Inst. Decision time for Depature: 05:33 Referrals: NO,LOCAL PHYSICIAN (PCP) Primary Care Physician Patient Instructions: Cellulitis (Skin Infection), Adult (DC) Add. Discharge Instructions: CONTINUE YOUR ANTIBIOTICS PRESCRIBED CLEAN WOUND TWICE A DAY WITH ANTIBACTERIAL SOAP AND WATER, APPLY ANTIBIOTIC OINTMENT AND FRESH DRESSING TWICE A DAY TAKE YOUR PAIN MEDICATION NEEDED FOLLOW UP WITH OF JA IN 2-3 DAYS FOR FURTHER CARE--CALL TODAY TO MAKE AN APPOINTMENT, LIST OF LOCAL DOCTORS IS PROVIDED All discharge instructions reviewed with patient and/or family. Voiced understanding. Scripts Sulfamethoxazole/Trimethoprim (Bactrim Ds Tablet) 1 Each Tablet 1 EACH PO BID, #20 TAB Prov: CHANDANA HORAN DO 11/29/22 Mupirocin (Mupirocin) 2 % Oint...g. 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
== END 2022-11-29 05:39 | disposition home or self-care (01) ==
LOC: EDUNIT# 05:06 → ER 05:11
DX: L03.115 Cellulitis of right lower limb (principal); Z88.0 Allergy status to penicillin
CPT/HCPCS: 99281